=== PATIENT | male | born 1990 | race African-American/Black ===

== ENCOUNTER 2019-10-19 10:14 | Emergency (ER) | payer SELFPAY ==
[2019-10-19 10:18] VITALS: TEMP 97.5; BMI 42.8
[2019-10-19 10:47] VITALS: BP 148/90; PULSE 93
--- NOTE | 2019-10-19 11:43 | PDOC ---
History of Present Illness - General Chief Complaint: Pain Stated Complaint: PAIN Time Seen by Provider: 10/19/19 10:27 History Source: Patient Exam Limitations: No Limitations Past History - Past Medical History Allergies/Adverse Reactions: Allergies Allergy/AdvReac Type Severity Reaction Status Date / Time No Known Allergies Allergy Verified 10/19/19 10:18 Home Medications: Ambulatory Orders Docusate Sodium [Colace] 100 mg PO TID #30 capsule 10/19/19 Lidocaine 2% Uro-Jet [Xylocaine 2% Uro-Jet] 3 ml UR ONCE PRN #4 cartridge COPD: No - Psycho Social/Smoking Cessation Hx Smoking History: Current every day smoker Information on smoking cessation initiated: No *Physical Exam - Vital Signs Last Vital Signs Temp Pulse Resp BP Pulse Ox 97.5 F L 93 H 18 148/90 99 10/19/19 10:15 10/19/19 10:47 10/19/19 10:47 10/19/19 10:47 10/19/19 10:47 - Physical Exam General Appearance: No: Apparent Distress Respiratory/Chest: positive: Lungs Clear, Normal Breath Sounds. negative: Respiratory Distress Cardiovascular: positive: Regular Rhythm, Regular Rate, S1, S2. negative: Murmur Gastrointestinal/Abdominal: positive: Normal Bowel Sounds, Soft. negative: Tender, Distended, Guarding, Rebound Rectal Exam: positive: other (stool brown in color; unable to feel any internal hemorrhoids, no obvious anal fissure noted). negative: hemorrhoids Neurologic: positive: Alert Medical Decision Making - Medical Decision Making 29 y/o M with no sig pmh presents with rectal pain x 3 days. States he feels uncomfortable with sitting down. Denies participating in anal intercourse, fever , sob, cp, abd pain, n/v/d, rectal bleeding, black stools, dysuria, unusual penile discharge. States has a BM everyday but does have to strain when using restroom. Unable to visualize any hemorrhoids stool color normal consider internal hemorrhoids vs anal fissure? will refer to GI for further eval 10/19/19 11:38 Discharge - Discharge Information Problems reviewed: Yes Clinical Impression/Diagnosis: Rectal pain Condition: Stable Disposition: HOME - Admission No - Additional Discharge Information Prescriptions: Docusate Sodium [Colace] 100 mg PO TID #30 capsule Lidocaine 2% Uro-Jet [Xylocaine 2% Uro-Jet] 3 ml UR ONCE PRN #4 cartridge PRN Reason: Pain Prescription Drug Monitoring Program (I-STOP) results: I-STOP not reviewed - Follow up/Referral Referrals: Miki Ann MD [Staff Physician] - 2 Days - Patient Discharge Instructions Additional Instructions: Thank you for choosing [facility]. It was a pleasure taking care of you. Colace is a stool softener - please take as directed Perform Sitz baths up to 3x a day, 10-15 minutes each Use lidocaine as needed for pain You were referred to GI for further evaluation Return to the Emergency Department if your symptoms worsen or persist, have fever, severe abdominal pain, rectal bleeding or other concerning symptoms. - Post Discharge Activity
== END 2019-10-19 11:57 | disposition home or self-care (01) ==
LOC: JER 10:14
DX: K62.89 Other specified diseases of anus and rectum (principal); F17.210 Nicotine dependence, cigarettes, uncomplicated
CPT/HCPCS: 99281-25